=== PATIENT | female | born 1945 | race Caucasian/White ===

== ENCOUNTER 2021-10-30 11:55 | Emergency (ER) | payer OTHER, MEDICAID ==
--- NOTE | 2021-10-30 12:30 | NUR ---
PT LEFT WITHOUT BEING TRIAGED
== END 2021-10-30 12:30 | disposition left against medical advice (07) ==
LOC: SED 11:55
DX: R50.9 Fever, unspecified (principal); R05.9 Cough, unspecified; R51.9 Headache, unspecified; Z53.21 Procedure and treatment not carried out due to patient leaving prior to being seen by health care provider

== ENCOUNTER 2021-11-21 20:34 | Inpatient (IN) | payer OTHER, MEDICAID ==
[~2021-11-21] VITALS: Ht 162.6 cm; Wt 74.4 kg
[2021-11-21 20:46] VITALS: BP_SYST 228
[2021-11-21 21:23] LABS: BASOPHILS % (AUTO) 0.1 % (0.0-2.0); EOSINOPHILS # (AUTO) 0.4 K/uL (0.0-0.4); EOSINOPHILS % (AUTO) 3.5 % (0.0-4.0); HEMATOCRIT 36.6 % (36-48); HEMOGLOBIN 12.4 g/dL (12.0-16.0); LYMPHOCYTES # (AUTO) 2.1 K/uL (1.0-5.5); LYMPHOCYTES % (AUTO) 20.5 % (20.5-51.5); MEAN CORPUSCULAR HEMOGLOBIN 29 pg (27-31); MEAN CORPUSCULAR HGB CONC 34 % (32-36); MEAN CORPUSCULAR VOLUME 87 fL (79.0-98.0); MONOCYTES % (AUTO) 9.8 % (1.7-9.3); NEUTROPHILS # (AUTO) 6.9 K/uL (1.8-7.7); NEUTROPHILS % (AUTO) 66.1 % (40.0-70.0); PLATELET COUNT (AUTO) 218 K/uL (130-430); RED BLOOD CELL COUNT(AUTO) 4.22 MIL/uL (4.2-6.2); RED CELL DISTRIBUTION WIDTH 13.4 % (9.0-15.0); WHITE BLOOD COUNT (AUTO) 10.5 K/uL (4.8-10.8)
[2021-11-21] MEDS ORDERED: hydrALAZINE HCL 20 MG/ML VIAL IVP ONE (21:30)
[2021-11-21] MEDS ORDERED: METOCLOPRAMIDE HCL 10 MG/2 ML VIAL IVP ONE (21:30)
[2021-11-21] MEDS ORDERED: DIPHENHYDRAMINE INJ 50 MG/ML VIAL IVP ONE (21:30)
[2021-11-21 21:31] LABS: ANION GAP 11 (5-15); CALCIUM 9.4 mg/dL (8.4-11.0); CHLORIDE 103 mmol/L (98-107); CREATININE 1.85 mg/dL (0.55-1.30); GLUCOSE 91 mg/dL (70-99); POTASSIUM 4.2 mmol/L (3.5-5.1); SODIUM SERUM 138 mmol/L (136-145); UREA NITROGEN, BLOOD 45 mg/dL (8-21)
[2021-11-21 21:39] LABS: ALANINE AMINOTRANSFERASE 19 U/L (12-78); ASPARTATE AMINOTRANSFERASE 17 U/L (10-37); TOTAL BILIRUBIN 0.2 mg/dL (0.0-1.0)
[2021-11-21] MEDS ORDERED: LORazepam 2 MG/ML VIAL IVP ONE (22:15)
[2021-11-22] VITALS (32 sets, daily range): BP systolic 107–221
[2021-11-22] MEDS ORDERED: ONDANSETRON HCL 4 MG/2 ML VIAL IVP ONE
[2021-11-22] MEDS ORDERED: HUMAN PROTHROMBIN COMPLX(PCC) 500 UNITS KIT IV ONE (00:30)
[2021-11-22] MEDS ORDERED: PHYTONADIONE 10 MG in NS 50 ML SUBCUT ONE (00:30)
[2021-11-22] MEDS ORDERED: PROPOFOL 200MG/ 20ML VIAL (DIPRIVAN) IV ONE (00:45)
[2021-11-22] MEDS ORDERED: PHYTONADIONE 10 MG/ML AMP IV ONE (00:45)
[2021-11-22 00:57] LABS: HEMATOCRIT 35.7 % (36-48); MEAN CORPUSCULAR HEMOGLOBIN 29 pg (27-31); MEAN CORPUSCULAR HGB CONC 34 % (32-36); MEAN CORPUSCULAR VOLUME 87 fL (79.0-98.0); PLATELET COUNT (AUTO) 221 K/uL (130-430); RED BLOOD CELL COUNT(AUTO) 4.09 MIL/uL (4.2-6.2); RED CELL DISTRIBUTION WIDTH 13.3 % (9.0-15.0); WHITE BLOOD COUNT (AUTO) 12.7 K/uL (4.8-10.8)
[2021-11-22] MEDS ORDERED: PROPOFOL DRIP 100 ML IV ONE ×3 (01:00→04:16)
[2021-11-22 01:17] LABS: PROTHROMBIN TIME 10.9 SECS (9.5-12.5)
[2021-11-22] MEDS ORDERED: PANTOPRAZOLE SODIUM 80 MG in NS 100 ML IVP ONE (02:00)
[2021-11-22] MEDS ORDERED: HYDROCORTISONE SOD SUCC 100 MG/2 ML VIAL IVP ONE (02:00)
[2021-11-22] MEDS ORDERED: CEFEPIME 1 GM in D5W 50 ML IV ONE (02:30)
[2021-11-22] MEDS ORDERED: PANTOPRAZOLE SODIUM 40 MG/VIAL (PROTONIX) ONE ×3 (02:37→04:42)
[2021-11-22] MEDS ORDERED: HYDROCORTISONE SOD SUCC 100 MG/2 ML VIAL ONE (02:41)
[2021-11-22] MEDS: PANTOPRAZOLE SODIUM 40 MG in NS 50 ML IV SCH ×4 (04:41→10:14)
[2021-11-22] MEDS ORDERED: CEFEPIME 1 GM/VIAL (MAXIPIME) ONE (04:57)
[2021-11-22] MEDS: PROPOFOL DRIP 100 ML IV PRN ×5 (05:08→23:00)
[2021-11-22] MEDS ORDERED: FLU VACC QS2022-23(6MOS UP)/PF 0.5 ML/SYR SYRINGE I.M. PRN (05:45)
[2021-11-22] MEDS ORDERED: PIPERACILLIN/TAZO 3.375 GM in NS 50 ML IV SCH (06:00)
[2021-11-22] MEDS ORDERED: ONDANSETRON HCL 4 MG/2 ML VIAL IVP PRN (06:15)
[2021-11-22] MEDS ORDERED: DOCUSATE SODIUM 100 MG CAPSULE PO PRN (06:15)
[2021-11-22] MEDS ORDERED: MUPIROCIN 2% TOPICAL OINTMENT 22 GM NS PRN (06:15)
[2021-11-22] MEDS ORDERED: ACETAMINOPHEN 325 MG TABLET PO PRN (06:15)
[2021-11-22] MEDS ORDERED: MAGNESIUM SULFATE 50 ML IV PRN (06:15)
[2021-11-22] MEDS ORDERED: POTASSIUM CHLORIDE 20 MEQ TAB.PRT.SR PO PRN (06:15)
[2021-11-22] MEDS ORDERED: MORPHINE 2 MG/ML INJ. SYRINGE IVP PRN ×2 (06:15)
[2021-11-22 06:37] LABS: BASOPHILS # (AUTO) 0.1 K/uL (0.0-0.2); BASOPHILS % (AUTO) 0.6 % (0.0-2.0); EOSINOPHILS # (AUTO) 0.3 K/uL (0.0-0.4); EOSINOPHILS % (AUTO) 2.7 % (0.0-4.0); HEMATOCRIT 36.2 % (36-48); HEMOGLOBIN 12.1 g/dL (12.0-16.0); LYMPHOCYTES # (AUTO) 1.8 K/uL (1.0-5.5); LYMPHOCYTES % (AUTO) 16.6 % (20.5-51.5); MEAN CORPUSCULAR HEMOGLOBIN 29 pg (27-31); MEAN CORPUSCULAR HGB CONC 33 % (32-36); MEAN CORPUSCULAR VOLUME 87 fL (79.0-98.0); MONOCYTES # (AUTO) 0.8 K/uL (0.0-1.0); MONOCYTES % (AUTO) 7.7 % (1.7-9.3); NEUTROPHILS # (AUTO) 7.7 K/uL (1.8-7.7); NEUTROPHILS % (AUTO) 72.4 % (40.0-70.0); PLATELET COUNT (AUTO) 224 K/uL (130-430); RED BLOOD CELL COUNT(AUTO) 4.14 MIL/uL (4.2-6.2); RED CELL DISTRIBUTION WIDTH 13.1 % (9.0-15.0); WHITE BLOOD COUNT (AUTO) 10.7 K/uL (4.8-10.8)
[2021-11-22 07:17] LABS: ANION GAP 7 (5-15); CALCIUM 8.5 mg/dL (8.4-11.0); CHLORIDE 105 mmol/L (98-107); CREATININE 1.74 mg/dL (0.55-1.30); GLUCOSE 102 mg/dL (70-99); POTASSIUM 3.9 mmol/L (3.5-5.1); SODIUM SERUM 141 mmol/L (136-145); UREA NITROGEN, BLOOD 40 mg/dL (8-21)
[2021-11-22] MEDS: NACL 0.9% 1,000 ML IV SCH ×2 (09:00→17:37)
[2021-11-22] MEDS: CEFEPIME 1 GM in D5W 50 ML IV SCH (10:10)
[2021-11-22] MEDS: hydrALAZINE HCL 20 MG/ML VIAL IVP PRN ×2 (10:35→20:39)
[2021-11-22] MEDS ORDERED: ETOMIDATE 20 MG/ 10 ML VIAL (AMIDATE) IVP ONE (10:58)
[2021-11-22] MEDS ORDERED: ROCURONIUM BROMIDE 10 MG/ML (ZEMURON) IV ONE (10:58)
[2021-11-22] MEDS ORDERED: PANTOPRAZOLE SODIUM 40 MG/VIAL (PROTONIX) IVP ONE (11:45)
[2021-11-22] MEDS ORDERED: MORPHINE 4 MG INJ. 4 MG/ML VIAL IVP ONE (16:45)
[2021-11-22] MEDS: METHYLPREDNISOLONE SOD SUCC 40 MG/ML VIAL IVP SCH (20:38)
[2021-11-23] VITALS (32 sets, daily range): BP systolic 128–181
[2021-11-23] MEDS: MORPHINE 4 MG INJ. 4 MG/ML VIAL IVP PRN ×2 (00:23→22:56)
[2021-11-23] MEDS: NACL 0.9% 1,000 ML IV SCH ×2 (03:21→21:06)
[2021-11-23] MEDS: PROPOFOL DRIP 100 ML IV PRN ×3 (03:56→23:52)
[2021-11-23 07:45] LABS: ANION GAP 9 (5-15); CALCIUM 8.5 mg/dL (8.4-11.0); CHLORIDE 108 mmol/L (98-107); CREATININE 1.58 mg/dL (0.55-1.30); GLUCOSE 308 mg/dL (70-99); POTASSIUM 4.3 mmol/L (3.5-5.1); SODIUM SERUM 139 mmol/L (136-145); UREA NITROGEN, BLOOD 38 mg/dL (8-21)
[2021-11-23 08:13] LABS: ALANINE AMINOTRANSFERASE 9 U/L (12-78); ALBUMIN 2.2 g/dL (3.4-4.8); ASPARTATE AMINOTRANSFERASE 19 U/L (10-37); THYROID STIMULATING HORMONE 0.02 uIu/mL (0.36-3.74); TOTAL BILIRUBIN 0.2 mg/dL (0.0-1.0)
[2021-11-23 08:15] LABS: BASOPHILS % (AUTO) 0.1 % (0.0-2.0); HEMATOCRIT 30.9 % (36-48); HEMOGLOBIN 10.3 g/dL (12.0-16.0); LYMPHOCYTES # (AUTO) 0.5 K/uL (1.0-5.5); LYMPHOCYTES % (AUTO) 5.2 % (20.5-51.5); MEAN CORPUSCULAR HEMOGLOBIN 29 pg (27-31); MEAN CORPUSCULAR HGB CONC 33 % (32-36); MEAN CORPUSCULAR VOLUME 88 fL (79.0-98.0); MONOCYTES # (AUTO) 0.1 K/uL (0.0-1.0); NEUTROPHILS # (AUTO) 8.1 K/uL (1.8-7.7); NEUTROPHILS % (AUTO) 93.7 % (40.0-70.0); PLATELET COUNT (AUTO) 183 K/uL (130-430); RED BLOOD CELL COUNT(AUTO) 3.51 MIL/uL (4.2-6.2); RED CELL DISTRIBUTION WIDTH 13.4 % (9.0-15.0); WHITE BLOOD COUNT (AUTO) 8.6 K/uL (4.8-10.8)
[2021-11-23] MEDS: PANTOPRAZOLE SODIUM 40 MG/VIAL (PROTONIX) IVP SCH (08:27)
[2021-11-23] MEDS: METHYLPREDNISOLONE SOD SUCC 40 MG/ML VIAL IVP SCH ×2 (08:27→21:06)
[2021-11-23] MEDS ORDERED: amLODIPine BESYLATE 5 MG TABLET PO ONE (09:15)
[2021-11-23] MEDS ORDERED: hydrALAZINE HCL 25 MG TABLET PO ONE (09:15)
[2021-11-23 09:57] LABS: CHOLESTEROL 138 mg/dL (<200); HDL CHOLESTEROL 41 mg/dL (>55); LDL CHOLESTEROL 69 mg/dL (<100); TRIGLYCERIDES 113 mg/dL (30-150)
[2021-11-23] MEDS: CEFEPIME 1 GM in D5W 50 ML IV SCH (10:03)
[2021-11-23] MEDS: hydrALAZINE HCL 20 MG/ML VIAL IVP PRN (10:04)
[2021-11-23] MEDS ORDERED: DEXTROSE 50% JECT 50 ML DISP.SYRIN IVP PRN (10:45)
[2021-11-23] MEDS ORDERED: D5W 1,000 ML IV PRN (10:45)
[2021-11-23] MEDS ORDERED: GLUCOSE (DEXTROSE) ORAL GEL -Adults PO PRN (10:45)
[2021-11-23] MEDS: INSULIN REGULAR, HUMAN 100 UNITS/ML, 10 ML VIAL (humuLIN R) SUBCUT PRN ×3 (11:10→21:11)
[2021-11-23] MEDS ORDERED: ESCI10TA PO (12:44)
[2021-11-23] MEDS ORDERED: LEVO100T9 PO (12:44)
[2021-11-23] MEDS ORDERED: INSU300I3 SQ (12:44)
[2021-11-23] MEDS ORDERED: INSU100V SQ ×2 (12:44)
[2021-11-23] MEDS ORDERED: LIP20 PO (12:44)
[2021-11-23] MEDS ORDERED: HYDR20TA PO (12:44)
[2021-11-23] MEDS ORDERED: XALEYE RIGHT EYE (12:44)
[2021-11-23] MEDS ORDERED: VITD400 PO (12:44)
[2021-11-23] MEDS ORDERED: CARV6.2554 PO (12:44)
[2021-11-23] MEDS ORDERED: PSYL0.4C2 PO (12:44)
[2021-11-23] MEDS ORDERED: ALPHAGANP RIGHT EYE (12:44)
[2021-11-23] MEDS ORDERED: RIVA10TA PO (12:44)
[2021-11-23] MEDS: hydrALAZINE HCL 25 MG TABLET PO SCH (21:08)
[2021-11-24] VITALS (30 sets, daily range): BP systolic 138–190
[2021-11-24] MEDS: hydrALAZINE HCL 20 MG/ML VIAL IVP PRN ×2 (01:06→21:00)
[2021-11-24] MEDS: PROPOFOL DRIP 100 ML IV PRN ×2 (03:35→20:07)
[2021-11-24] MEDS: INSULIN REGULAR, HUMAN 100 UNITS/ML, 10 ML VIAL (humuLIN R) SUBCUT PRN ×3 (05:22→18:08)
[2021-11-24] MEDS: LORazepam 2 MG/ML VIAL IVP PRN ×2 (05:46→16:58)
[2021-11-24 06:45] LABS: ANION GAP 7 (5-15); CALCIUM 8.4 mg/dL (8.4-11.0); CHLORIDE 108 mmol/L (98-107); CREATININE 1.47 mg/dL (0.55-1.30); GLUCOSE 277 mg/dL (70-99); POTASSIUM 4.4 mmol/L (3.5-5.1); SODIUM SERUM 140 mmol/L (136-145); UREA NITROGEN, BLOOD 44 mg/dL (8-21)
[2021-11-24 07:16] LABS: BASOPHILS % (AUTO) 0.1 % (0.0-2.0); EOSINOPHILS % (AUTO) 0.1 % (0.0-4.0); HEMATOCRIT 30.7 % (36-48); HEMOGLOBIN 10.3 g/dL (12.0-16.0); LYMPHOCYTES # (AUTO) 0.5 K/uL (1.0-5.5); LYMPHOCYTES % (AUTO) 4.2 % (20.5-51.5); MEAN CORPUSCULAR HEMOGLOBIN 30 pg (27-31); MEAN CORPUSCULAR HGB CONC 33 % (32-36); MEAN CORPUSCULAR VOLUME 89 fL (79.0-98.0); MONOCYTES # (AUTO) 0.3 K/uL (0.0-1.0); MONOCYTES % (AUTO) 2.3 % (1.7-9.3); NEUTROPHILS # (AUTO) 11.6 K/uL (1.8-7.7); NEUTROPHILS % (AUTO) 93.3 % (40.0-70.0); PLATELET COUNT (AUTO) 203 K/uL (130-430); RED BLOOD CELL COUNT(AUTO) 3.47 MIL/uL (4.2-6.2); RED CELL DISTRIBUTION WIDTH 13.5 % (9.0-15.0); WHITE BLOOD COUNT (AUTO) 12.5 K/uL (4.8-10.8)
[2021-11-24] MEDS ORDERED: DEXMEDETOMIDINE HCL 400 MCG in NS 96 ML IV PRN (09:00)
[2021-11-24] MEDS: hydrALAZINE HCL 25 MG TABLET PO SCH ×2 (09:27→21:00)
[2021-11-24] MEDS: amLODIPine BESYLATE 5 MG TABLET PO SCH (09:27)
[2021-11-24] MEDS: PANTOPRAZOLE SODIUM 40 MG/VIAL (PROTONIX) IVP SCH (09:28)
[2021-11-24] MEDS: METHYLPREDNISOLONE SOD SUCC 40 MG/ML VIAL IVP SCH ×2 (09:28→20:59)
[2021-11-24] MEDS: CEFEPIME 1 GM in D5W 50 ML IV SCH (09:29)
[2021-11-24] MEDS: NACL 0.9% 1,000 ML IV SCH (15:03)
[2021-11-24 18:12] LABS: BILIRUBIN,URINE NEGATIVE (NEGATIVE); BLOOD, URINE NEGATIVE (NEGATIVE); CLARITY/URINE CLEAR (CLEAR); COLOR,URINE YELLOW (YELLOW); GLUCOSE,URINE 2+ (NEGATIVE); KETONES,URINE NEGATIVE (NEGATIVE); LEUKOCYTE ESTERASE ,URINE NEGATIVE (NEGATIVE); NITRITE, URINE NEGATIVE (NEGATIVE); PH,URINE 5.5 (5.0-8.0); PROTEIN URINE 2+ (NEGATIVE); UROBILINOGEN,URINE 0.2 (0.2-1.0)
[2021-11-24 18:50] LABS: BACTERIA,URINE None Seen /HPF (None Seen); WBC,URINE NONE SEEN /HPF (0-3)
[2021-11-24 18:51] LABS: MUCUS,URINE 1+ /LPF (None Seen)
[2021-11-25] VITALS (22 sets, daily range): BP systolic 139–191
[2021-11-25] MEDS ORDERED: DEXMEDETOMIDINE HCL 200 MCG/2 ML VIAL IV ONE (04:22)
[2021-11-25 06:18] LABS: ANION GAP 8 (5-15); CALCIUM 8.2 mg/dL (8.4-11.0); CHLORIDE 108 mmol/L (98-107); CREATININE 1.49 mg/dL (0.55-1.30); GLUCOSE 362 mg/dL (70-99); SODIUM SERUM 139 mmol/L (136-145); UREA NITROGEN, BLOOD 54 mg/dL (8-21)
[2021-11-25 06:27] LABS: ALANINE AMINOTRANSFERASE 14 U/L (12-78); ALBUMIN 2.4 g/dL (3.4-4.8); ASPARTATE AMINOTRANSFERASE 20 U/L (10-37); TOTAL BILIRUBIN 0.2 mg/dL (0.0-1.0)
[2021-11-25] MEDS: INSULIN REGULAR, HUMAN 100 UNITS/ML, 10 ML VIAL (humuLIN R) SUBCUT PRN ×4 (06:50→20:21)
[2021-11-25 07:25] LABS: BASOPHILS % (AUTO) 0.1 % (0.0-2.0); HEMOGLOBIN 10.9 g/dL (12.0-16.0); LYMPHOCYTES # (AUTO) 0.5 K/uL (1.0-5.5); LYMPHOCYTES % (AUTO) 4.3 % (20.5-51.5); MEAN CORPUSCULAR HEMOGLOBIN 29 pg (27-31); MEAN CORPUSCULAR HGB CONC 33 % (32-36); MEAN CORPUSCULAR VOLUME 88 fL (79.0-98.0); MONOCYTES # (AUTO) 0.4 K/uL (0.0-1.0); MONOCYTES % (AUTO) 3.4 % (1.7-9.3); NEUTROPHILS # (AUTO) 11.3 K/uL (1.8-7.7); NEUTROPHILS % (AUTO) 92.2 % (40.0-70.0); PLATELET COUNT (AUTO) 201 K/uL (130-430); RED BLOOD CELL COUNT(AUTO) 3.73 MIL/uL (4.2-6.2); RED CELL DISTRIBUTION WIDTH 13.9 % (9.0-15.0); WHITE BLOOD COUNT (AUTO) 12.3 K/uL (4.8-10.8)
[2021-11-25] MEDS: PANTOPRAZOLE SODIUM 40 MG/VIAL (PROTONIX) IVP SCH (08:30)
[2021-11-25] MEDS: amLODIPine BESYLATE 5 MG TABLET PO SCH (08:30)
[2021-11-25] MEDS: METHYLPREDNISOLONE SOD SUCC 40 MG/ML VIAL IVP SCH ×2 (08:30→20:11)
[2021-11-25] MEDS: hydrALAZINE HCL 25 MG TABLET PO SCH ×2 (08:30→20:12)
[2021-11-25] MEDS: CEFEPIME 1 GM in D5W 50 ML IV SCH (09:22)
[2021-11-25] MEDS ORDERED: INSULIN GLARGINE 100 UNITS/ML 10 ML VIAL SUBCUT ONE (10:15)
[2021-11-25] MEDS: NACL 0.9% 1,000 ML IV SCH (10:24)
[2021-11-25] MEDS: hydrALAZINE HCL 20 MG/ML VIAL IVP PRN ×3 (11:23→23:46)
[2021-11-25] MEDS: IPRATROPIUM/ALBUTEROL SULFATE 3 ML AMPUL.NEB (DUONEB) INH SCH ×3 (12:24→23:25)
[2021-11-25] MEDS: LORazepam 2 MG/ML VIAL IVP PRN ×3 (12:57→23:46)
[2021-11-25] MEDS: MORPHINE 4 MG INJ. 4 MG/ML VIAL IVP PRN (23:49)
[2021-11-26] VITALS (23 sets, daily range): BP systolic 112–199
[2021-11-26] MEDS: IPRATROPIUM/ALBUTEROL SULFATE 3 ML AMPUL.NEB (DUONEB) INH SCH ×6 (03:00→23:31)
[2021-11-26] MEDS: hydrALAZINE HCL 20 MG/ML VIAL IVP PRN ×4 (05:26→23:26)
[2021-11-26] MEDS: LORazepam 2 MG/ML VIAL IVP PRN (05:26)
[2021-11-26] MEDS: INSULIN REGULAR, HUMAN 100 UNITS/ML, 10 ML VIAL (humuLIN R) SUBCUT PRN ×3 (05:29→17:22)
[2021-11-26] MEDS: NACL 0.9% 1,000 ML IV SCH ×2 (07:03→17:51)
[2021-11-26 08:32] LABS: ANION GAP 7 (5-15); CALCIUM 8.9 mg/dL (8.4-11.0); CHLORIDE 111 mmol/L (98-107); CREATININE 1.29 mg/dL (0.55-1.30); GLUCOSE 257 mg/dL (70-99); POTASSIUM 4.6 mmol/L (3.5-5.1); SODIUM SERUM 141 mmol/L (136-145); UREA NITROGEN, BLOOD 55 mg/dL (8-21)
[2021-11-26] MEDS: METHYLPREDNISOLONE SOD SUCC 40 MG/ML VIAL IVP SCH ×2 (08:42→20:48)
[2021-11-26] MEDS: PANTOPRAZOLE SODIUM 40 MG/VIAL (PROTONIX) IVP SCH (08:42)
[2021-11-26] MEDS ORDERED: hydrALAZINE HCL 25 MG TABLET ONE (08:43)
[2021-11-26] MEDS: amLODIPine BESYLATE 5 MG TABLET PO SCH (08:43)
[2021-11-26] MEDS: hydrALAZINE HCL 25 MG TABLET PO SCH ×3 (08:43→21:05)
[2021-11-26] MEDS: INSULIN GLARGINE 100 UNITS/ML 10 ML VIAL SUBCUT SCH (08:44)
[2021-11-26] MEDS: CEFEPIME 1 GM in D5W 50 ML IV SCH (09:05)
[2021-11-26] MEDS ORDERED: hydrALAZINE HCL 20 MG/ML VIAL IVP PRN (09:30)
[2021-11-26 11:04] LABS: BASOPHILS % (AUTO) 0.1 % (0.0-2.0); HEMATOCRIT 31.5 % (36-48); HEMOGLOBIN 10.4 g/dL (12.0-16.0); LYMPHOCYTES # (AUTO) 0.3 K/uL (1.0-5.5); LYMPHOCYTES % (AUTO) 2.8 % (20.5-51.5); MEAN CORPUSCULAR HEMOGLOBIN 29 pg (27-31); MEAN CORPUSCULAR HGB CONC 33 % (32-36); MEAN CORPUSCULAR VOLUME 89 fL (79.0-98.0); MONOCYTES # (AUTO) 0.5 K/uL (0.0-1.0); MONOCYTES % (AUTO) 4.2 % (1.7-9.3); NEUTROPHILS # (AUTO) 11.1 K/uL (1.8-7.7); NEUTROPHILS % (AUTO) 92.9 % (40.0-70.0); PLATELET COUNT (AUTO) 192 K/uL (130-430); RED BLOOD CELL COUNT(AUTO) 3.56 MIL/uL (4.2-6.2); RED CELL DISTRIBUTION WIDTH 13.7 % (9.0-15.0); WHITE BLOOD COUNT (AUTO) 11.9 K/uL (4.8-10.8)
[2021-11-26] MEDS ORDERED: amLODIPine BESYLATE 5 MG TABLET ONE (11:19)
[2021-11-26] MEDS ORDERED: LORazepam 2 MG/ML VIAL IVP ONE (20:15)
[2021-11-27] VITALS (23 sets, daily range): BP systolic 148–211
[2021-11-27] MEDS: IPRATROPIUM/ALBUTEROL SULFATE 3 ML AMPUL.NEB (DUONEB) INH SCH ×5 (03:32→21:32)
[2021-11-27] MEDS: INSULIN REGULAR, HUMAN 100 UNITS/ML, 10 ML VIAL (humuLIN R) SUBCUT PRN ×3 (03:54→17:09)
[2021-11-27] MEDS: NACL 0.9% 1,000 ML IV SCH ×3 (03:57→23:39)
[2021-11-27] MEDS: hydrALAZINE HCL 20 MG/ML VIAL IVP PRN ×3 (07:43→20:40)
[2021-11-27 07:45] LABS: BASOPHILS % (AUTO) 0.1 % (0.0-2.0); EOSINOPHILS % (AUTO) 0.1 % (0.0-4.0); HEMATOCRIT 31.7 % (36-48); HEMOGLOBIN 10.7 g/dL (12.0-16.0); LYMPHOCYTES # (AUTO) 0.4 K/uL (1.0-5.5); LYMPHOCYTES % (AUTO) 2.9 % (20.5-51.5); MEAN CORPUSCULAR HEMOGLOBIN 30 pg (27-31); MEAN CORPUSCULAR HGB CONC 34 % (32-36); MEAN CORPUSCULAR VOLUME 88 fL (79.0-98.0); MONOCYTES # (AUTO) 0.5 K/uL (0.0-1.0); MONOCYTES % (AUTO) 4.3 % (1.7-9.3); NEUTROPHILS # (AUTO) 11.3 K/uL (1.8-7.7); NEUTROPHILS % (AUTO) 92.6 % (40.0-70.0); PLATELET COUNT (AUTO) 187 K/uL (130-430); RED BLOOD CELL COUNT(AUTO) 3.61 MIL/uL (4.2-6.2); RED CELL DISTRIBUTION WIDTH 13.5 % (9.0-15.0); WHITE BLOOD COUNT (AUTO) 12.2 K/uL (4.8-10.8)
[2021-11-27] MEDS: PANTOPRAZOLE SODIUM 40 MG/VIAL (PROTONIX) IVP SCH (07:59)
[2021-11-27] MEDS: amLODIPine BESYLATE 10 MG TABLET PO SCH (07:59)
[2021-11-27] MEDS: METHYLPREDNISOLONE SOD SUCC 40 MG/ML VIAL IVP SCH ×2 (07:59→20:50)
[2021-11-27] MEDS: hydrALAZINE HCL 25 MG TABLET PO SCH ×2 (07:59→20:50)
[2021-11-27] MEDS: INSULIN GLARGINE 100 UNITS/ML 10 ML VIAL SUBCUT SCH ×2 (08:06→20:58)
[2021-11-27 08:14] LABS: ANION GAP 11 (5-15); CALCIUM 8.2 mg/dL (8.4-11.0); CHLORIDE 104 mmol/L (98-107); CREATININE 1.14 mg/dL (0.55-1.30); GLUCOSE 257 mg/dL (70-99); SODIUM SERUM 137 mmol/L (136-145); UREA NITROGEN, BLOOD 44 mg/dL (8-21)
[2021-11-27] MEDS: CEFEPIME 1 GM in D5W 50 ML IV SCH (09:27)
[2021-11-27] MEDS ORDERED: ENALAPRILAT DIHYDRATE 1.25 MG/ML VIAL ONE (10:14)
[2021-11-27] MEDS: ENALAPRILAT DIHYDRATE 1.25 MG/ML VIAL IVP PRN ×2 (10:21→17:08)
[2021-11-28] VITALS (21 sets, daily range): BP systolic 154–197
[2021-11-28] MEDS: ENALAPRILAT DIHYDRATE 1.25 MG/ML VIAL IVP PRN ×2 (00:11→22:58)
[2021-11-28] MEDS: IPRATROPIUM/ALBUTEROL SULFATE 3 ML AMPUL.NEB (DUONEB) INH SCH ×6 (00:53→19:38)
[2021-11-28] MEDS: INSULIN REGULAR, HUMAN 100 UNITS/ML, 10 ML VIAL (humuLIN R) SUBCUT PRN ×4 (04:42→23:20)
[2021-11-28 07:19] LABS: BASOPHILS % (AUTO) 0.2 % (0.0-2.0); HEMATOCRIT 34.1 % (36-48); HEMOGLOBIN 11.5 g/dL (12.0-16.0); LYMPHOCYTES # (AUTO) 0.4 K/uL (1.0-5.5); LYMPHOCYTES % (AUTO) 3.8 % (20.5-51.5); MEAN CORPUSCULAR HEMOGLOBIN 30 pg (27-31); MEAN CORPUSCULAR HGB CONC 34 % (32-36); MEAN CORPUSCULAR VOLUME 88 fL (79.0-98.0); MONOCYTES # (AUTO) 0.6 K/uL (0.0-1.0); MONOCYTES % (AUTO) 5.1 % (1.7-9.3); NEUTROPHILS # (AUTO) 9.9 K/uL (1.8-7.7); NEUTROPHILS % (AUTO) 90.9 % (40.0-70.0); PLATELET COUNT (AUTO) 191 K/uL (130-430); RED BLOOD CELL COUNT(AUTO) 3.88 MIL/uL (4.2-6.2); RED CELL DISTRIBUTION WIDTH 13.4 % (9.0-15.0); WHITE BLOOD COUNT (AUTO) 10.8 K/uL (4.8-10.8)
[2021-11-28 08:08] LABS: ALANINE AMINOTRANSFERASE 17 U/L (12-78); ALBUMIN 2.2 g/dL (3.4-4.8); ANION GAP 7 (5-15); ASPARTATE AMINOTRANSFERASE 22 U/L (10-37); CALCIUM 8.5 mg/dL (8.4-11.0); CHLORIDE 107 mmol/L (98-107); CREATININE 1.31 mg/dL (0.55-1.30); GLUCOSE 231 mg/dL (70-99); POTASSIUM 4.5 mmol/L (3.5-5.1); SODIUM SERUM 140 mmol/L (136-145); TOTAL BILIRUBIN 0.3 mg/dL (0.0-1.0); UREA NITROGEN, BLOOD 51 mg/dL (8-21)
[2021-11-28] MEDS: PANTOPRAZOLE SODIUM 40 MG/VIAL (PROTONIX) IVP SCH (08:16)
[2021-11-28] MEDS: METHYLPREDNISOLONE SOD SUCC 40 MG/ML VIAL IVP SCH ×2 (08:16→22:09)
[2021-11-28] MEDS: amLODIPine BESYLATE 10 MG TABLET PO SCH (08:17)
[2021-11-28] MEDS: hydrALAZINE HCL 20 MG/ML VIAL IVP PRN (08:18)
[2021-11-28] MEDS ORDERED: hydrALAZINE HCL 25 MG TABLET PO ONE (09:10)
[2021-11-28] MEDS: NACL 0.9% 1,000 ML IV SCH ×2 (10:37→23:42)
[2021-11-28] MEDS: CEFEPIME 1 GM in D5W 50 ML IV SCH (11:32)
[2021-11-28] MEDS ORDERED: BALSAM PERU/CASTOR OIL 56.7 GM OINT...G. TP ONE (15:15)
[2021-11-28] MEDS: hydrALAZINE HCL 25 MG TABLET PO SCH ×2 (15:31→22:08)
[2021-11-28] MEDS: INSULIN GLARGINE 100 UNITS/ML 10 ML VIAL SUBCUT SCH (22:35)
[2021-11-29] VITALS (7 sets, daily range): BP systolic 140–192
[2021-11-29 06:49] LABS: ANION GAP 7 (5-15); CALCIUM 8.2 mg/dL (8.4-11.0); CHLORIDE 106 mmol/L (98-107); CREATININE 1.25 mg/dL (0.55-1.30); GLUCOSE 178 mg/dL (70-99); POTASSIUM 4.2 mmol/L (3.5-5.1); SODIUM SERUM 137 mmol/L (136-145); UREA NITROGEN, BLOOD 50 mg/dL (8-21)
[2021-11-29 06:53] LABS: BASOPHILS % (AUTO) 0.1 % (0.0-2.0); EOSINOPHILS % (AUTO) 0.1 % (0.0-4.0); HEMATOCRIT 34.4 % (36-48); HEMOGLOBIN 11.7 g/dL (12.0-16.0); LYMPHOCYTES # (AUTO) 0.3 K/uL (1.0-5.5); LYMPHOCYTES % (AUTO) 3.2 % (20.5-51.5); MEAN CORPUSCULAR HEMOGLOBIN 29 pg (27-31); MEAN CORPUSCULAR HGB CONC 34 % (32-36); MEAN CORPUSCULAR VOLUME 87 fL (79.0-98.0); MONOCYTES # (AUTO) 0.3 K/uL (0.0-1.0); MONOCYTES % (AUTO) 3.2 % (1.7-9.3); NEUTROPHILS # (AUTO) 9.8 K/uL (1.8-7.7); NEUTROPHILS % (AUTO) 93.4 % (40.0-70.0); PLATELET COUNT (AUTO) 178 K/uL (130-430); RED BLOOD CELL COUNT(AUTO) 3.98 MIL/uL (4.2-6.2); RED CELL DISTRIBUTION WIDTH 13.3 % (9.0-15.0); WHITE BLOOD COUNT (AUTO) 10.5 K/uL (4.8-10.8)
[2021-11-29] MEDS: IPRATROPIUM/ALBUTEROL SULFATE 3 ML AMPUL.NEB (DUONEB) INH SCH ×4 (07:45→21:36)
[2021-11-29] MEDS: CEFEPIME 1 GM in D5W 50 ML IV SCH (09:16)
[2021-11-29] MEDS: amLODIPine BESYLATE 10 MG TABLET PO SCH (09:17)
[2021-11-29] MEDS: PANTOPRAZOLE SODIUM 40 MG TAB PO SCH (09:18)
[2021-11-29] MEDS: CITALOPRAM HYDROBROMIDE 20 MG TABLET PO SCH (09:18)
[2021-11-29] MEDS: predniSONE 20 MG TABLET PO SCH (09:18)
[2021-11-29] MEDS: hydrALAZINE HCL 25 MG TABLET PO SCH ×3 (09:18→20:45)
[2021-11-29] MEDS: NACL 0.9% 1,000 ML IV SCH ×2 (09:20→15:48)
[2021-11-29] MEDS: BALSAM PERU/CASTOR OIL 56.7 GM OINT...G. TP SCH (09:24)
[2021-11-29] MEDS: INSULIN REGULAR, HUMAN 100 UNITS/ML, 10 ML VIAL (humuLIN R) SUBCUT PRN ×2 (11:12→16:30)
[2021-11-29] MEDS: INSULIN GLARGINE 100 UNITS/ML 10 ML VIAL SUBCUT SCH (21:00)
[2021-11-29] MEDS ORDERED: ATORVASTATIN 20 MG TABLET PO SCH (21:00)
[2021-11-30] VITALS: BP_SYST 105
[2021-11-30] MEDS: IPRATROPIUM/ALBUTEROL SULFATE 3 ML AMPUL.NEB (DUONEB) INH SCH ×4 (01:13→11:18)
[2021-11-30] MEDS ORDERED: NALOXONE HCL 0.4 MG/ML AMP (NARCAN) IVP PRN ×2 (01:45)
[2021-11-30] MEDS ORDERED: LORazepam 1 MG TABLET PO PRN (01:45)
[2021-11-30] MEDS ORDERED: MORPHINE 2 MG/ML INJ. SYRINGE IVP PRN ×2 (01:45)
[2021-11-30] MEDS ORDERED: ZOLPIDEM TARTRATE 5 MG TABLET PO PRN (01:45)
[2021-11-30 05:00] VITALS: BP_SYST 170
[2021-11-30] MEDS: ENALAPRILAT DIHYDRATE 1.25 MG/ML VIAL IVP PRN (05:16)
[2021-11-30] MEDS: NACL 0.9% 1,000 ML IV SCH (06:30)
[2021-11-30 06:35] LABS: BASOPHILS % (AUTO) 0.2 % (0.0-2.0); EOSINOPHILS # (AUTO) 0.1 K/uL (0.0-0.4); EOSINOPHILS % (AUTO) 0.7 % (0.0-4.0); HEMATOCRIT 34.8 % (36-48); HEMOGLOBIN 11.8 g/dL (12.0-16.0); LYMPHOCYTES # (AUTO) 1.1 K/uL (1.0-5.5); LYMPHOCYTES % (AUTO) 9.2 % (20.5-51.5); MEAN CORPUSCULAR HEMOGLOBIN 29 pg (27-31); MEAN CORPUSCULAR HGB CONC 34 % (32-36); MEAN CORPUSCULAR VOLUME 86 fL (79.0-98.0); MONOCYTES % (AUTO) 9.2 % (1.7-9.3); NEUTROPHILS # (AUTO) 9.2 K/uL (1.8-7.7); NEUTROPHILS % (AUTO) 80.7 % (40.0-70.0); PLATELET COUNT (AUTO) 176 K/uL (130-430); RED BLOOD CELL COUNT(AUTO) 4.05 MIL/uL (4.2-6.2); RED CELL DISTRIBUTION WIDTH 13.2 % (9.0-15.0); WHITE BLOOD COUNT (AUTO) 11.4 K/uL (4.8-10.8)
[2021-11-30] MEDS ORDERED: LEVOTHYROXINE SODIUM 0.1 MG TABLET PO SCH (07:00)
[2021-11-30 07:33] VITALS: BP_SYST 190
[2021-11-30] MEDS: hydrALAZINE HCL 25 MG TABLET PO SCH (08:07)
[2021-11-30] MEDS: predniSONE 20 MG TABLET PO SCH (08:08)
[2021-11-30] MEDS: BALSAM PERU/CASTOR OIL 56.7 GM OINT...G. TP SCH (08:08)
[2021-11-30] MEDS: amLODIPine BESYLATE 10 MG TABLET PO SCH (08:08)
[2021-11-30] MEDS: CITALOPRAM HYDROBROMIDE 20 MG TABLET PO SCH (08:08)
[2021-11-30] MEDS: PANTOPRAZOLE SODIUM 40 MG TAB PO SCH (08:08)
[2021-11-30] MEDS ORDERED: predniSONE 20 MG TABLET PO SCH (09:00)
[2021-11-30 09:05] LABS: ALANINE AMINOTRANSFERASE 24 U/L (12-78); ALBUMIN 2.4 g/dL (3.4-4.8); ANION GAP 7 (5-15); ASPARTATE AMINOTRANSFERASE 20 U/L (10-37); CALCIUM 8.2 mg/dL (8.4-11.0); CHLORIDE 108 mmol/L (98-107); CREATININE 1.17 mg/dL (0.55-1.30); GLUCOSE 115 mg/dL (70-99); POTASSIUM 3.8 mmol/L (3.5-5.1); SODIUM SERUM 138 mmol/L (136-145); TOTAL BILIRUBIN 0.4 mg/dL (0.0-1.0); UREA NITROGEN, BLOOD 48 mg/dL (8-21)
[2021-11-30] MEDS: CEFEPIME 1 GM in D5W 50 ML IV SCH (10:10)
[2021-11-30 11:15] VITALS: BP_SYST 132
[2021-11-30] MEDS: INSULIN REGULAR, HUMAN 100 UNITS/ML, 10 ML VIAL (humuLIN R) SUBCUT PRN (11:16)
[2021-11-30 11:51] VITALS: BP_SYST 132
== END 2021-11-30 14:03 | DRG 208 ==
LOC: SED 20:34 → SIC 11-22 03:10 → STU 11-28 20:02
PROVIDERS: ADMIT Family Medicine; ATTEND Family Medicine
PROC: 0BH17EZ Insertion of Endotracheal Airway into Trachea, Via Natural or Artificial Opening (ICD-10-PCS; principal; 2021-11-22)
PROC: 5A1945Z Respiratory Ventilation, 24-96 Consecutive Hours (ICD-10-PCS; 2021-11-22)
PROC: 4A10X4Z Monitoring of Central Nervous Electrical Activity, External Approach (ICD-10-PCS; 2021-11-28)
DX: J69.0 Pneumonitis due to inhalation of food and vomit (principal); J96.01 Acute respiratory failure with hypoxia; G93.41 Metabolic encephalopathy; N17.0 Acute kidney failure with tubular necrosis; K92.2 Gastrointestinal hemorrhage, unspecified; I16.1 Hypertensive emergency; E24.9 Cushing's syndrome, unspecified; K92.0 Hematemesis; E03.9 Hypothyroidism, unspecified; I95.1 Orthostatic hypotension; E78.00 Pure hypercholesterolemia, unspecified; I12.9 Hypertensive chronic kidney disease with stage 1 through stage 4 chronic kidney disease, or unspecified chronic kidney disease; E11.22 Type 2 diabetes mellitus with diabetic chronic kidney disease; N18.30 Chronic kidney disease, stage 3 unspecified; Z20.822 Contact with and (suspected) exposure to COVID-19; I25.10 Atherosclerotic heart disease of native coronary artery without angina pectoris; E11.51 Type 2 diabetes mellitus with diabetic peripheral angiopathy without gangrene; Z86.73 Personal history of transient ischemic attack (TIA), and cerebral infarction without residual deficits; Z89.421 Acquired absence of other right toe(s); Z95.5 Presence of coronary angioplasty implant and graft; Z88.0 Allergy status to penicillin; Z88.2 Allergy status to sulfonamides
CPT/HCPCS: 36415; 36600; 70450-TC; 71045; 74018; 76376; 80048; 80053; 80061; 81000; 82803-TC; 82962; 83036; 83051; 83605; 83735; 83880; 84439; 84443; 84480; 84484; 85014; 85025; 85048; 85049-TC; 85610-TC; 85730-TC; 86886; 86900; 86901; 87040; 87070-TC; 87081; 87205-TC; 92610-GN; 93005; 93306; 94002; 94003; 94640; 95816; 96374; 96375; 97110-GP; 97163-GP; 97530-GP; 99285; C9113; G0378; J0360; J0692; J1030; J1200; J1720; J1815; J2060; J2270; J2405; J2704; J2765; J3430; J3490; J7060; J7512